=== PATIENT | female | born 1990 | race African-American/Black ===

== ENCOUNTER 2016-11-08 08:45 | Observation (INO) | payer MEDICAID ==
[2016-11-08 09:20] VITALS: BMI 18.4
[2016-11-08 09:47] LABS: AUTOMATED BASOPHIL 1.5 % (0-2); AUTOMATED EOSINOPHIL 0.4 % (0-5); AUTOMATED LYMPH 26.8 % (17-44); AUTOMATED MONOCYTE 7.8 % (3-10); AUTOMATED NEUTROPHIL 63.5 % (45-76); MPV 8.6 fL (7.4-10.4)
[2016-11-08 10:10] LABS: BLOOD UREA NITROGEN 13 MG/DL (7-17); CALCIUM 9.8 MG/DL (8.4-10.2); CALCULATED OSMOLALITY 274 MOs/Kg (270-290); CHLORIDE 115 mEq/L (98-107); GLUCOSE 77 MG/DL (70-99); SODIUM LEVEL 143 mEq/L (137-146); TOTAL PROTEIN 8.4 G/DL (6.3-8.2)
[2016-11-08 10:29] LABS: ETOH-MGDL < 10 mg/dL
[2016-11-08 10:40] LABS: ALL NEG? NO
[2016-11-08 10:47] LABS: LEUKOCYTES/URINE NEG (NEGATIVE); NITRITE/URINE NEG (NEGATIVE); RBC/URINE 0-2 (0-5); URINE OCCULT BLOOD NEG (NEG/TRACE)
[2016-11-08 10:50] LABS: MDMA* NEG (NEGATIVE); METHAMPHETAMINES NEG (NEGATIVE); OXYCODONE NEG (NEGATIVE)
--- NOTE | 2016-11-08 11:05 | EDPRACDOC ---
- General Information Chief Complaint: Anxiety Illness Stated Complaint: ANXIETY/ DEPRESSION Time Seen by Provider: 11/08/16 10:59 Information Source: Patient, Family Mode of Arrival: Car Home Medications: Home Medications Hydrocodone Bit/Acetaminophen [[place] 5-325 Tablet] 1 - 2 tab PO Q4H PRN #30 tab 03/16/16 Ibuprofen Tablet [Motrin] 800 mg PO Q6 PRN #45 tab 03/16/16 Allergies/Adverse Reactions: Allergies Allergy/AdvReac Type Severity Reaction Status Date / Time No Known Allergies Allergy Verified 11/08/16 09:20 - History of Present Illness Onset: 3 days HPI: Pt c/o not being able to sleep for 3 days. Pt states depression and "not wanting to be here anymore" due to the loss of her children's father and his uncle in shooting on Monday. Denies HI, hallucination, drug use. Pt c/o headache. Reason for Seeking Treatment: Self-referral Presents With: Reports: Depression Expresses: Denies: Suicidal Intent, Suicidal Plan, Left Suicide Note, None, SUIC , U, O Suicidal Plan: Denies: Overdose, Laceration, Gun, None, Other, U Suicidal Attempt: Reports: N Stressors: Reports: Relationships Relevant History: Reports: None Medication Compliance: N/A Able to Care for Self: No Able to Control Self: No Associated Signs and Symptoms: Reports: Depression, Hopeless ED Past Medical History - History Reviewed Yes Nurses notes reviewed and agree except as marked - Patient Medical History GI/ History: Denies: Urinary Tract Infection Psychological History: Denies: Depression Surgical History: Reports: Cholecystectomy - Family Medical History Reports: Hypertension (MOTHER, SISTER), Diabetes (NIECE). Denies: Cancer, Stroke, Cardiac Disorders - Social Medical History Smoking Status: Heavy tobacco smoker (5 or more cigarettes/day or daily pipe/ cigar) ETOH: Social Substance Abuse: None EDM Review of Systems - Review of Systems Constitutional: No Symptoms Reported. negative: Fever, Chills, Weakness, Fatigue, Loss of Appetite Ears: No Symptoms Reported. negative: Pain, Hearing Loss, Drainage, Ear Pulling Throat: No Symptoms Reported. negative: Pain, Swelling Nose: No Symptoms Reported. negative: Congestion, Bleeding, Discharge, Injection, Swelling, Deformity, Ecchymosis, Tender, Abrasion, Laceration Mouth: No Symptoms Reported. negative: Pain, Drooling Respiratory: No Symptoms Reported. negative: Cough, Brassy Cough, Barky Cough, Shortness of Breath, Wheezing, Hemoptysis Cardiovascular: No Symptoms Reported. negative: Chest Pain, Palpitations, Syncope, Edema, Orthopnea, PND, Skin Mottling, Cyanosis Gastrointestinal: No Symptoms Reported. negative: Pain, Constipation, Nausea, Vomiting, Diarrhea, Melena, Formula Intolerance Genitourinary: No Symptoms Reported. negative: Dysuria, Hematuria, Frequency, Discharge, Bleeding, Testicular Pain, Neurological: Headache Musculoskeletal: No Symptoms Reported. negative: Neck, Chestwall, Ribs, Back, Shoulder, Arm, Elbow, Forearm, Wrist, Hand, Pelvis, Hip, Femur, Knee, Leg, Ankle , Foot Integumentary: No Symptoms Reported. negative: Itching, Rash, Bruising, Wound Allergic/Immunologic: No Symptoms Reported. negative: Hives, Itching Hematologic: No Symptoms Reported. negative: Lymphadenopathy, Easy Bruising, Easy Bleeding Psychiatric: Depression, Insomnia. negative: No Symptoms Reported, Anxiety, Hallucinations, Suicidal - Physical Exam Constitutional: Alert Oriented to: Time, Person, Place Last recorded Vital Signs: Last Vital Signs Temp 98.9 F 11/08/16 09:18 Pulse 85 11/08/16 10:30 Resp 20 11/08/16 10:30 BP 125/80 11/08/16 10:30 Pulse Ox 98 11/08/16 10:30 Oxygen Pulse Oxygen Saturation 98 O2 Device Room Air Oxygen Flow Rate Fraction of Inspired Oxygen ( FIO2) - HEENT Head: Normal ( normocephalic) Eye Exam: Normal (PERRL, EOMI, Sclera white) Oropharynx: Normal (Pharynx:Moist without exudate,Gums-no swelling) Tympanic Membrane: Normal ENT EAC: Normal Nose: No Symptoms Reported (septum midline) Neck: Normal (FROM, trachea at midline) - Respiratory/Cardiovascular Respiratory: Normal - CTA (BBS clear to auscultation without adventitious sounds ) Cardiovascular: Normal (RRR without murmur, gallop or rub) - GI Auscultation: Normal (NABS) Palpation: Normal (Soft,No rebound or guarding, non distended) Tenderness: Non tender - Musculoskeletal Back: Normal (Non-Tender) Extremities: Normal (Normal tone, Pulses 2+ No cyanosis or edema, FROM) - Integumentary Skin: Normal, Warm, Dry Lymphatics: Normal (no adenopathy) - Neurologic Memory Impaired: Normal Motor Function: Normal (Normal tone, Pulses 2+ No cyanosis or edema, FROM) Mood Description: Depressed Thought: Coherent Perception: Normal Initial Evaluation Apperance: Casual Attitude: Cooperative Mood: Sad Affect: Depressed Insight: Good Judgement: Good Memory Description: Intact Depressive Symptoms: Reports: Hopelessness, Sadness Delusion Description: Reports: Not Present Hallucination Type: Reports: None Hallucinations Severity: Reports: None Hallucinations affecting more than one sensory system: No - Differential Diagnosis Depression - Results 11/08/16 09:30 11/08/16 09:30 WBC 7.6 xk/uL (3.8-10.8) 11/08/16 09:30 RBC 4.70 xM/uL (4.20-5.40) 11/08/16 09:30 Hgb 14.9 g/dL (12.0-16.0) 11/08/16 09:30 Hct 44.6 % (36-47) 11/08/16 09:30 MCV 95 fL (81-99) 11/08/16 09:30 MCH 31.6 pg (27-32) 11/08/16 09:30 MCHC 33.4 g/dl (33-36) 11/08/16 09:30 RDW 13.5 % (11.5-14.5) 11/08/16 09:30 Plt Count 179 xk/uL (130-400) 11/08/16 09:30 MPV 8.6 fL (7.4-10.4) 11/08/16 09:30 Neut % (Auto) 63.5 % (45-76) 11/08/16 09:30 Lymph % (Auto) 26.8 % (17-44) 11/08/16 09:30 Falls % (Auto) 7.8 % (3-10) 11/08/16 09:30 Eos % (Auto) 0.4 % (0-5) 11/08/16 09:30 Baso % (Auto) 1.5 % (0-2) 11/08/16 09:30 Absolute Neuts (auto) 4.79 xk/uL (1.7-8.2) 11/08/16 09:30 Absolute Lymphs (auto) 1.98 xk/uL (0.65-4.75) 11/08/16 09:30 Sodium 143 mEq/L (137-146) 11/08/16 09:30 Potassium 3.5 mEq/L (3.5-5.1) 11/08/16 09:30 Chloride 115 mEq/L (98-107) H 11/08/16 09:30 Carbon Dioxide 23 mMOL/L (22-33) 11/08/16 09:30 Anion Gap 9 mEq/L (8-16) 11/08/16 09:30 BUN 13 MG/DL (7-17) 11/08/16 09:30 Creatinine 0.80 MG/DL (0.52-1.04) 11/08/16 09:30 Estimated GFR (MDRD) > 60 mL/min (>=60) 11/08/16 09:30 Glucose 77 MG/DL (70-99) 11/08/16 09:30 Calculated Osmolality 274 MOs/Kg (270-290) 11/08/16 09:30 Calcium 9.8 MG/DL (8.4-10.2) 11/08/16 09:30 Total Bilirubin 1.0 MG/DL (0.2-1.3) 11/08/16 09:30 AST 27 IU/L (14-36) 11/08/16 09:30 ALT 31 IU/L (9-52) 11/08/16 09:30 Alkaline Phosphatase 68 IU/L (38-126) 11/08/16 09:30 Total Protein 8.4 G/DL (6.3-8.2) H 11/08/16 09:30 Albumin 4.7 G/DL (3.5-5.0) 11/08/16 09:30 Urine Color Yellow 11/08/16 10:30 Urine Clarity Clear 11/08/16 10:30 Urine pH 6.0 (5.0-8.0) 11/08/16 10:30 Ur Specific [place] 1.020 (1.003-1.035) 11/08/16 10:30 Urine Protein 1+ (NEG/TRACE) H 11/08/16 10:30 Urine Glucose (UA) Neg (NEGATIVE) 11/08/16 10:30 Urine Ketones Neg (NEGATIVE) 11/08/16 10:30 Urine Occult Blood Neg (NEG/TRACE) 11/08/16 10:30 Urine Nitrite Neg (NEGATIVE) 11/08/16 10:30 Urine Bilirubin Neg (NEGATIVE) 11/08/16 10:30 Urine Urobilinogen <2.0 MG/DL (0-1) 11/08/16 10:30 Ur Leukocyte Esterase Neg (NEGATIVE) 11/08/16 10:30 Urine RBC 0-2 (0-5) 11/08/16 10:30 Urine WBC 2-5 (0-5) 11/08/16 10:30 Ur Epithelial Cells 2+ 11/08/16 10:30 Urine Bacteria Few (NEG/FEW) 11/08/16 10:30 Urine Mucus Large (NEG/OCC) 11/08/16 10:30 Urine Test Neg (NEGATIVE) 11/08/16 10:30 Urine Opiates Screen Neg (NEGATIVE) 11/08/16 10:30 Ur Oxycodone Screen Neg (NEGATIVE) 11/08/16 10:30 Urine Methadone Screen Neg (NEGATIVE) 11/08/16 10:30 Ur Barbiturates Screen Neg (NEGATIVE) 11/08/16 10:30 Ur Tricyclics Screen Neg (NEGATIVE) 11/08/16 10:30 Ur Phencyclidine Scrn Neg (NEGATIVE) 11/08/16 10:30 Ur Amphetamines Screen Neg (NEGATIVE) 11/08/16 10:30 U Methamphetamines Scrn Neg (NEGATIVE) 11/08/16 10:30 Urine MDMA Screen Neg (NEGATIVE) 11/08/16 10:30 U Benzodiazepines Scrn *positive* (NEGATIVE) H 11/08/16 10:30 Urine Cocaine Screen Neg (NEGATIVE) 11/08/16 10:30 Ur THC Screen Neg (NEGATIVE) 11/08/16 10:30 Plasma/Serum Ethyl Alc % (<0.01) 11/08/16 09:30 Lab Results 11/08/16 11/08/16 11/08/16 10:30 10:30 10:30 WBC RBC Hgb Hct MCV MCH MCHC RDW Plt Count MPV Neut % (Auto) Lymph % (Auto) Falls % (Auto) Eos % (Auto) Baso % (Auto) Absolute Neuts (auto) Absolute Lymphs (auto) Sodium Potassium Chloride Carbon Dioxide Anion Gap BUN Creatinine Estimated GFR (MDRD) Glucose Calculated Osmolality Calcium Total Bilirubin AST ALT Alkaline Phosphatase Total Protein Albumin Urine Color Yellow Urine Clarity Clear Urine pH 6.0 Ur Specific [place] 1.020 Urine Protein 1+ H Urine Glucose (UA) Neg Urine Ketones Neg Urine Occult Blood Neg Urine Nitrite Neg Urine Bilirubin Neg Urine Urobilinogen <2.0 Ur Leukocyte Esterase Neg Urine RBC 0-2 Urine WBC 2-5 Ur Epithelial Cells 2+ Urine Bacteria Few Urine Mucus Large Urine Test Neg Urine Opiates Screen Neg Ur Oxycodone Screen Neg Urine Methadone Screen Neg Ur Barbiturates Screen Neg Ur Tricyclics Screen Neg Ur Phencyclidine Scrn Neg Ur Amphetamines Screen Neg U Methamphetamines Scrn Neg Urine MDMA Screen Neg U Benzodiazepines Scrn *positive* H Urine Cocaine Screen Neg Ur THC Screen Neg Plasma/Serum Ethyl Alc 11/08/16 11/08/16 09:30 09:30 WBC 7.6 RBC 4.70 Hgb 14.9 Hct 44.6 MCV 95 MCH 31.6 MCHC 33.4 RDW 13.5 Plt Count 179 MPV 8.6 Neut % (Auto) 63.5 Lymph % (Auto) 26.8 Falls % (Auto) 7.8 Eos % (Auto) 0.4 Baso % (Auto) 1.5 Absolute Neuts (auto) 4.79 Absolute Lymphs (auto) 1.98 Sodium 143 Potassium 3.5 Chloride 115 H Carbon Dioxide 23 Anion Gap 9 BUN 13 Creatinine 0.80 Estimated GFR (MDRD) > 60 Glucose 77 Calculated Osmolality 274 Calcium 9.8 Total Bilirubin 1.0 AST 27 ALT 31 Alkaline Phosphatase 68 Total Protein 8.4 H Albumin 4.7 Urine Color Urine Clarity Urine pH Ur Specific [place] Urine Protein Urine Glucose (UA) Urine Ketones Urine Occult Blood Urine Nitrite Urine Bilirubin Urine Urobilinogen Ur Leukocyte Esterase Urine RBC Urine WBC Ur Epithelial Cells Urine Bacteria Urine Mucus Urine Test Urine Opiates Screen Ur Oxycodone Screen Urine Methadone Screen Ur Barbiturates Screen Ur Tricyclics Screen Ur Phencyclidine Scrn Ur Amphetamines Screen U Methamphetamines Scrn Urine MDMA Screen U Benzodiazepines Scrn Urine Cocaine Screen Ur THC Screen Plasma/Serum Ethyl Alc - Departure Disposition: Admit to Condition: Stable Final Diagnosis: Moderate major depression, single episode Education/Counseling Given To: Patient Education/Counseling Given Regarding: Diagnosis, Treatment Referrals: Angelo Lau MD [Primary Care Provider] - One Week - Physician Consulted Behavorial health Time Called: 11:07 Consult Reason: Mental health eval *ED Obs Orders - Orders Orders: 11/08/16 11:07 Acetaminophen Tablet [TYLENOL Tablet] 650 mg PO Q6H PRN Ibuprofen Tablet [Motrin] 400 mg PO Q6H PRN Lorazepam [Ativan] 1 mg PO Q6H PRN Ondansetron HCl [Zofran] 4 mg PO Q6H PRN Zolpidem Tartrate [Ambien] 5 mg PO 2100,2200 PRN Diet Regular Routine 11/08/16 11:08 Cancel Previous Diet Order Routine Vital Signs-Unit Routine Routine TU Observation Routine 11/08/16 12:00 Nicotine [Nicoderm] 21 mg TOP Q24H Statement: As supervising physician I agree with this plan as developed by the Allied Health Practitioner.
[2016-11-08] MEDS ORDERED: ONDANSETRON HCL 4 MG ODT TAB PO PRN (11:07)
[2016-11-08] MEDS ORDERED: ZOLPIDEM TARTRATE 5 MG TAB PO PRN (11:07)
[2016-11-08] MEDS ORDERED: IBUPROFEN 400 MG TAB PO PRN (11:07)
[2016-11-08] MEDS ORDERED: ACETAMINOPHEN 325 MG/TAB TABLET PO PRN (11:07)
[2016-11-08] MEDS ORDERED: LORAZEPAM 1 MG TAB PO PRN (11:07)
[2016-11-08] MEDS ORDERED: NICOTINE 21 MG PATCH TOP SCH (12:00)
--- NOTE | 2016-11-08 13:43 | TUDEPART ---
- Patient Problems (1) ACUTE GRIEF REACTION Acute Time Seen By Provider: 13:40 Discussion of OBS Stay: S: PT'S BABY'S FATHER WAS MURDERED OVER THE WEEKEND, PT HAS BEEN CRYING NON-STOP , NOT ABLE TO SLEEP, ANXIOUS, TEARFUL. PT SEEN AND EVALUATED BY , IS NOT CURRENTLY SUICIDAL/HOMICIDAL, WILL FOLLOW UP OP. PT STATES SHE FEELS BETTER NOW AFTER ATIVAN. 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, VSS AFEBRILE PSYCH: CALM, COOPERATIVE A: ACUTE GRIEF REACTION P: CELEXA 20 MG Q DAY XANAX 0.25 MG Q 8 HRS PRN ANXIETY FOLLOW UP WITH NARINDER OR OTHER GRIEF COUNSELOR Disposition: Home Condition: Stable Education/Counseling Given To: Patient Education/Counseling Given Regarding: Diagnosis, Treatment, Prognosis, Follow Up Follow-up / Referrals: Angelo Lau MD [Primary Care Provider] - One Week Prescriptions: Alprazolam [Xanax] 0.25 mg PO Q8H PRN #20 tab PRN Reason: Anxiety Citalopram (anti-depressant) [Celexa] 20 mg PO DAILY #30 tab - Physical Exam Constitutional: Alert Oriented to: Time, Person, Place Last recorded Vital Signs: Last Vital Signs Temp 98.9 F 11/08/16 09:18 Pulse 85 11/08/16 10:30 Resp 20 11/08/16 10:30 BP 125/80 11/08/16 10:30 Pulse Ox 98 11/08/16 10:30 Oxygen Pulse Oxygen Saturation O2 Device Oxygen Flow Rate Fraction of Inspired Oxygen ( FIO2) - HEENT Head: Normal ( normocephalic) Eye Exam: Normal (PERRL, EOMI, Sclera white) Oropharynx: Normal (Pharynx:Moist without exudate,Gums-no swelling) Tympanic Membrane: Normal ENT EAC: Normal Nose: No Symptoms Reported (septum midline) - Respiratory/Cardiovascular Respiratory: Normal - CTA (BBS clear to auscultation without adventitious sounds ) Cardiovascular: Normal (RRR without murmur, gallop or rub) - GI Auscultation: Normal (NABS) Palpation: Normal (Soft,No rebound or guarding, non distended) Tenderness: Non tender - Musculoskeletal Back: Normal (Non-Tender) Extremities: Normal (Normal tone, Pulses 2+ No cyanosis or edema, FROM) - Integumentary Skin: Normal, Warm, Dry Lymphatics: Normal (no adenopathy) - Neurologic Memory Impaired: Normal Motor Function: Normal (Normal tone, Pulses 2+ No cyanosis or edema, FROM) Mood Description: Depressed Thought: Coherent Perception: Normal
[2016-11-08 14:17] VITALS: BP 121/84; PULSE 106; TEMP 98.7
== END 2016-11-08 14:20 | disposition home or self-care (01) ==
LOC: ED 08:45 → TUOBSINP 11:07
PROVIDERS: ADMIT Emergency Medicine; ATTEND Emergency Medicine
DX: F32.1 Major depressive disorder, single episode, moderate (principal); F41.8 Other specified anxiety disorders; F43.23 Adjustment disorder with mixed anxiety and depressed mood
CPT/HCPCS: 36415; 80053; 80307; 80320; 81001; 81025; 85025; 86592; 93005; 99285; G0378; J3490